=== PATIENT | female | born 1995 | race Caucasian/White ===

== ENCOUNTER → 2019-11-20 | Outpatient (CLI) | payer OTHER ==
--- NOTE | 2019-11-20 15:19 | REP ---
REASON: anatomy. PRIORS: None. Multiple ultrasonographic images of the gravid uterus show a single living intrauterine gestation on the breech presentation. Doppler interrogation of the heart shows a heart rate of 130 beats per minute. The placenta is posterior, fundal and not low-lying. The subjective amniotic fluid volume is within normal limits. The cervix measures 3.6 cm in length and is closed. Evaluation of the maternal adnexal spaces show no abnormalities. BPD 4.0 cm = 18 weeks 1 day HC 14.9 cm = 18 weeks 0 days AC 12.1 cm = 17 weeks 6 days FL 2.6 cm = 17 weeks 5 days The estimated weight is 210 grams, which is at the 40th percentile for an 10-tcro-7-day gestational age. The anatomic structures seen as unremarkable are as follows: Thalami, cavum septum pellucidum, cerebellum, cisterna magna, cerebral ventricles, spine, kidneys, stomach, four-chamber heart, right and left ventricular outflow tracts, cord insertion, three-vessel umbilical cord, urinary bladder upper and lower extremities, and facial features. IMPRESSION: Single living intrauterine gestation as described above with an estimated gestational age of 18 weeks 0 days via composite criteria and an estimated date of delivery of 04/22/2020 by today's exam. No anomalies were detected.
== END ==
LOC: M WHC 09:21
PROVIDERS: ATTEND Advanced Practice Midwife
DX: Z34.02 Encounter for supervision of normal first pregnancy, second trimester (principal)

== ENCOUNTER → 2020-01-15 | Outpatient (REF) | payer OTHER ==
[2020-01-15 13:37] LABS: HEMATOCRIT 38.6 % (36.0-47.0); HEMOGLOBIN 12.8 g/dl (12.0-15.5); MEAN CORPUSCULAR HEMOGLOBIN 31.7 pg (27.0-33.0); MEAN CORPUSCULAR HGB CONC 33.2 g/dl (32.0-36.5); MEAN CORPUSCULAR VOLUME 95.5 fl (80.0-96.0); PLATELET COUNT, AUTOMATED 185 10^3/uL (150-450); RED BLOOD COUNT 4.04 10^6/uL (4.00-5.40); WHITE BLOOD COUNT 6.7 10^3/uL (4.0-10.0)
== END ==
LOC: M PLALAB 09:06
PROVIDERS: ATTEND Advanced Practice Midwife
DX: Z34.02 Encounter for supervision of normal first pregnancy, second trimester (principal)

== ENCOUNTER → 2020-03-25 | Outpatient (REF) | payer OTHER ==
[~2020-03-25] MED LIST: ACET-683 PO; DOCU100C16 PO; IBUP80TA PO; PERCOCET PO; PRENTAB9 PO; ZOLO25TA PO
== END ==
LOC: M SFHCWAGY 08:35
PROVIDERS: ATTEND Advanced Practice Midwife
DX: Z34.03 Encounter for supervision of normal first pregnancy, third trimester (principal)

== ENCOUNTER 2020-04-23 22:28 | Inpatient (IN) | payer OTHER ==
[~2020-04-23] VITALS: Ht 157.5 cm; Wt 70.7 kg
[2020-04-23 22:49] VITALS: BP 130/85
[2020-04-23] MEDS ORDERED: LR 1,000 ML IV SCH (23:13)
[2020-04-23] MEDS ORDERED: LACTATED RINGER'S 1000 ML IV STA (23:13)
[2020-04-23] MEDS ORDERED: OXYTOCIN DRIP 30 UNITS in IV 1 EA IV SCH (23:15)
[2020-04-23 23:20] LABS: HEMATOCRIT 40.7 % (36.0-47.0); HEMOGLOBIN 13.9 g/dl (12.0-15.5); MEAN CORPUSCULAR HGB CONC 34.2 g/dl (32.0-36.5); MEAN CORPUSCULAR VOLUME 93.8 fl (80.0-96.0); PLATELET COUNT, AUTOMATED 163 10^3/uL (150-450); RED BLOOD COUNT 4.34 10^6/uL (4.00-5.40); WHITE BLOOD COUNT 12.9 10^3/uL (4.0-10.0)
[2020-04-23] MEDS ORDERED: FENTANYL 2MCG/ML ROPIVACAINE 0.2% IN 0.9% NACL 100ML IVBAG As Ordered ONE (23:33)
[2020-04-23] MEDS ORDERED: PRENTAB9 PO (23:52)
[2020-04-23] MEDS ORDERED: ACET-683 PO (23:53)
[2020-04-23 23:55] VITALS: BP 127/79
[2020-04-24] VITALS (31 sets, daily range): BP systolic 100–137; BP diastolic 56–84
[2020-04-24] MEDS ORDERED: ePHEDrine SULFATE 25 MG/5 ML(5MG/ML) SYRINGE IV PRN (00:35)
[2020-04-24] MEDS ORDERED: EPIDURAL COMMENT XX SCH (00:35)
[2020-04-24] MEDS ORDERED: NALOXONE INJ 0.4MG/1ML VIAL (J2310 PER 1MG) IV PRN ×3 (00:35→06:56)
[2020-04-24] MEDS ORDERED: diphenhydrAMINE 50MG/ML VIAL (J1200) IV PRN ×2 (00:35→06:56)
[2020-04-24] MEDS ORDERED: LACTATED RINGER'S 1000 ML IV PRN (00:35)
[2020-04-24] MEDS ORDERED: ONDANSETRON 4MG/2ML VIAL IV PRN ×3 (00:35→08:15)
[2020-04-24] MEDS ORDERED: EPIDURAL/PCA KEYS XX PRN (00:35)
[2020-04-24] MEDS ORDERED: FENTANYL/ROPIVACAINE/NACL BAG 100 ML EPIDURAL SCH (00:35)
[2020-04-24] MEDS ORDERED: REFRIGERATOR IV KEYS XX PRN (00:35)
[2020-04-24] MEDS ORDERED: ePHEDrine SULFATE 25 MG/5 ML(5MG/ML) SYRINGE As Ordered ONE ×2 (01:11→06:55)
[2020-04-24] MEDS ORDERED: OXYTOCIN 30 UNITS IN 0.9% NaCl 500ML IV BAG (J2590) As Ordered ONE (04:47)
[2020-04-24] MEDS ORDERED: ceFAZolin 2 GM/D5W 50 ML IV BAG (J0690 PER 500MG) As Ordered ONE (06:30)
[2020-04-24] MEDS ORDERED: ceFAZolin SOD 2 GM in IV 1 EA IV ONE (06:30)
[2020-04-24] MEDS ORDERED: BICITRA 30ML SOLN UDC PO ONE (06:30)
[2020-04-24] MEDS ORDERED: BICITRA 30ML SOLN UDC As Ordered ONE (06:30)
[2020-04-24] MEDS ORDERED: AZITHROMYCIN INJ 500 MG, VIAL MATE ADAPTER 1 EACH in D5W 250 ML IV ONE (06:30)
[2020-04-24] MEDS ORDERED: AZITHROMYCIN INJ 500MG VIAL (J0456 PER 500MG) As Ordered ONE (06:31)
[2020-04-24] MEDS ORDERED: OXYTOCIN INJ 10 UNITS/ML VIAL (J2590) As Ordered ONE (06:50)
[2020-04-24] MEDS ORDERED: LIDOCAINE 2% W/EPINEPHRINE 20ML VIAL **PRES FREE As Ordered ONE (06:50)
[2020-04-24] MEDS ORDERED: MORPHINE PRES-FREE INJ 10 MG/10 ML VIAL (J2274) As Ordered ONE (06:50)
[2020-04-24] MEDS ORDERED: KETOROLAC 60MG 2ML VIAL As Ordered ONE (06:55)
[2020-04-24] MEDS ORDERED: PHENYLephrine HCL 500 MCG/5 ML (100MCG/ML) SYRINGE (J2370) As Ordered ONE (06:55)
[2020-04-24] MEDS ORDERED: dexameTHASONE 4 MG/ML 1ML VIAL (J1100 PER 1MG) As Ordered ONE (06:55)
[2020-04-24] MEDS ORDERED: ONDANSETRON 4MG/2ML VIAL As Ordered ONE (06:55)
[2020-04-24] MEDS ORDERED: NALBUPHINE HCL 10 MG/ML AMP (J2300) IV PRN ×2 (06:56→08:15)
[2020-04-24] MEDS ORDERED: METOCLOPRAMIDE INJ 10MG/2ML VIAL (J2765 PER 1) IV PRN (06:56)
[2020-04-24] MEDS ORDERED: MIDAZOLAM INJ 2MG/2ML VIAL (J2250 PER 1MG) As Ordered ONE (07:14)
[2020-04-24 07:47] LABS: CORD GAS HCO3 A 24.4 MEQ/L; CORD GAS O2 SAT A 25.6 %; CORD GAS PCO2 A 53.1 mmHg; CORD GAS PH A 7.28 UNITS; CORD GAS PO2 A 15.8 mmHg; CORD GAS SBC A 20.4 MEQ/L
[2020-04-24 07:50] LABS: CORD GAS ABE V -3.9; CORD GAS HCO3 V 21.6 MEQ/L; CORD GAS O2 SAT V 77.8 %; CORD GAS PCO2 V 41.2 mmHg; CORD GAS PH V 7.338 UNITS; CORD GAS SBC V 20.8 MEQ/L; CORD GAS TCO2 V 22.9 MEQ/L
[2020-04-24] MEDS ORDERED: OXYTOCIN DRIP 30 UNITS in IV 1 EA IV SCH (08:06)
[2020-04-24] MEDS ORDERED: RHOGAM 300 MCG (1500 IU) INJ (J2790) IM SCH (08:15)
[2020-04-24] MEDS ORDERED: LR 1,000 ML IV SCH (08:15)
[2020-04-24] MEDS ORDERED: MEASLES,MUMPS,RUBELLA VACCINE INJ (MMR-II) (90707) SC SCH (08:15)
[2020-04-24] MEDS ORDERED: DOCUSATE SODIUM 100 MG CAP PO PRN (08:15)
[2020-04-24] MEDS ORDERED: PERCOCET 5MG/325MG TAB PO PRN (08:15)
[2020-04-24] MEDS ORDERED: fentaNYL 100 MCG/2 ML INJECTION (J3010) IV PRN (08:15)
[2020-04-24] MEDS: LR 1,000 ML IV SCH ×3 (08:25→20:29)
[2020-04-24] MEDS: PRENATAL VITAMINS CHEWABLE TABLET PO SCH (12:38)
[2020-04-24] MEDS: KETOROLAC 30 MG/ML 1ML VIAL IV SCH ×2 (15:10→20:29)
--- NOTE | 2020-04-24 16:23 | HPE ---
DATE OF ADMISSION: 04/23/2020 HISTORY OF PRESENT ILLNESS: 24-year-old, G1, P0 female at 40 2/7 weeks gestation by last menstrual period (LMP), consistent with early ultrasound presents and regular contracts every 3 to 4 minutes for the last several hours. Regular contracts with increased intensity. She denies vaginal bleeding, has got movement. MEDICAL HISTORY: Noncontributory. SURGICAL HISTORY: [place] tooth removed. ALLERGIES: None. SOCIAL HISTORY: The patient is . She lives in [facility]. She denies cigarettes, alcohol or drug use. FAMILY HISTORY: Noncontributory. PHYSICAL EXAMINATION: Blood pressure 124/74, pulse 84.She appears uncomfortable. Head and neck: Normal. Lungs clear. Heart regular rate and rhythm. Abdomen: Nontender, gravid. heart rate category 1, cervix 3 cm, 70%, minus 2, posterior soft vertex. Contractions every 3 to 4 minutes. Extremities: Nontender. LABORATORY: GBS negative. ASSESSMENT: 24-year-old, G1, P0 at 40 2/7 weeks gestation, presents in early labor. PLAN: The patient is admitted on 04/23/2020 [facility]
[2020-04-24] MEDS ORDERED: ONDANSETRON 4MG/2ML VIAL IV ONE (16:30)
[2020-04-25 02:45] VITALS: BP 109/80
[2020-04-25] MEDS: KETOROLAC 30 MG/ML 1ML VIAL IV SCH (02:58)
[2020-04-25 06:00] VITALS: BP 117/61
--- NOTE | 2020-04-25 07:21 | IPNPDOC ---
Text Note Date of Service The patient was seen on 04/25/20. NOTE PO #1 Feels well. OOB independently. Adequate pain management. Tolerating diet. Voiding. VSS, afebrile, normotensive Breasts soft, nipples intact Fundus firm, NT Dressing dry and intact Lochia rubra scant without odor PO #1 Routine care. Anticipate D/C in am VS,Fishbone, I+O VS, Fishbone, I+O Vital Signs Date Time Temp Pulse Resp B/P (MAP) Pulse Ox O2 Delivery O2 Flow Rate FiO2 04/25/20 06:00 98.2 78 18 117/61 (79) 97 Room Air I&O- Last 24 Hours up to 6 AM 04/25/20 06:00 Intake Total 1850 ml Output Total 3000 ml Balance -1150 ml Myriam Lucas CNM Apr 25, 2020 07:21
[2020-04-25 07:40] LABS: HEMATOCRIT 30.9 % (36.0-47.0); HEMOGLOBIN 10.3 g/dl (12.0-15.5); MEAN CORPUSCULAR HEMOGLOBIN 32.3 pg (27.0-33.0); MEAN CORPUSCULAR HGB CONC 33.3 g/dl (32.0-36.5); MEAN CORPUSCULAR VOLUME 96.9 fl (80.0-96.0); PLATELET COUNT, AUTOMATED 142 10^3/uL (150-450); RED BLOOD COUNT 3.19 10^6/uL (4.00-5.40); WHITE BLOOD COUNT 13.2 10^3/uL (4.0-10.0)
[2020-04-25] MEDS: PRENATAL VITAMINS CHEWABLE TABLET PO SCH (07:48)
[2020-04-25] MEDS: IBUPROFEN 800 MG TAB PO SCH ×2 (09:46→17:51)
[2020-04-25 09:54] VITALS: BP 109/67
[2020-04-25 14:15] VITALS: BP 110/73
[2020-04-25] MEDS: PERCOCET 5MG/325MG TAB PO PRN (17:01)
[2020-04-25 18:00] VITALS: BP 110/75
[2020-04-25 22:24] VITALS: BP 116/76
[2020-04-26] MEDS: PERCOCET 5MG/325MG TAB PO PRN ×2 (00:51→08:01)
[2020-04-26 02:00] VITALS: BP 112/73
[2020-04-26] MEDS: IBUPROFEN 800 MG TAB PO SCH ×2 (02:51→10:30)
[2020-04-26 07:01] VITALS: BP 118/80
[2020-04-26] MEDS: PRENATAL VITAMINS CHEWABLE TABLET PO SCH (08:01)
[2020-04-26] MEDS ORDERED: INFLUENZA QUADRIVALENT PF VACCINE 0.5ML SYRINGE IM ONE (09:00)
[2020-04-26] MEDS ORDERED: DOCU100C16 PO (10:08)
[2020-04-26] MEDS ORDERED: IBUP80TA PO (10:08)
[2020-04-26] MEDS ORDERED: PERCOCET PO (10:08)
--- NOTE | 2020-05-14 16:16 | RO ---
DATE OF OPERATION: 04/24/2020 PREOPERATIVE DIAGNOSIS: 40 and 3/7 weeks gestation, arrest of dilation. POSTOPERATIVE DIAGNOSIS: 40 and 3/7 weeks gestation, arrest of dilation. PROCEDURE: Primary low-transverse section. SURGEON: Modesto Carney MD ANESTHESIA: Epidural ESTIMATED BLOOD LOSS: 600 ml. URINE OUTPUT: 100 ml FLUIDS: 700 ml, LR FINDINGS: 3470 gm, 7 pound, 10 ounce male with scores 9 and 9, occiput posterior, normal uterus, fallopian tubes and ovaries. OPERATIVE SUMMARY: The patient was taken to the operating room where epidural anesthesia was adequate. She was prepped and draped in sterile fashion in the supine position. Fish catheter had already been placed. A Pfannenstiel skin incision made with the scalpel and carried through the fascia and the fascia nicked and extended and the fascia resected off the rectus muscle. The peritoneal cavity was entered. A Mobius retractor was placed. A bladder flap was created. Curvilinear incision made in the lower uterine segment until clear fluid was noted. This extended manually. The uterus was delivered from the vertex position without difficulty. The cord was doubly clamped and cut and the was handed off to waiting nurse. The placenta was expressed. The uterus was closed with 0-Vicryl in a running locked fashion. A second imbricating layer of 0-Vicryl was placed. The Mobius retractor was removed. The peritoneum was closed with 2-0 Vicryl in running fashion; the fascia was closed with 0- Vicryl in running fashion. Deep layer was irrigated. The skin was closed with 4-0 Monocryl subcuticular sutures. Sponge, instrument and needle counts were correct. MTDD
== END 2020-04-26 13:45 | disposition home or self-care (01) | DRG 540 ==
LOC: M LDO 22:28 → M LDI 22:59 → M OBS 04-24 09:23
PROVIDERS: ADMIT Specialist; ATTEND Specialist
PROC: 10D00Z1 Extraction of Products of Conception, Low, Open Approach (ICD-10-PCS; principal; 2020-04-24 07:00)
DX: O48.0 Post-term pregnancy (principal); O62.0 Primary inadequate contractions; Z3A.40 40 weeks gestation of pregnancy; Z37.0 Single live birth

== ENCOUNTER 2020-05-03 12:29 | Emergency (ER) | payer OTHER ==
[~2020-05-03] VITALS: Ht 157.5 cm; Wt 59.7 kg
[~2020-05-03 12:29] MED LIST changes: -ZOLO25TA PO
[2020-05-03] MEDS ORDERED: ZOLO25TA PO (13:31)
[2020-05-03 13:58] VITALS: BP 116/77
== END 2020-05-03 13:59 | disposition home or self-care (01) ==
LOC: M ED 12:29
DX: F53.0 Postpartum depression (principal); F41.1 Generalized anxiety disorder